=== PATIENT | female | born 1990 | race Caucasian/White ===

== ENCOUNTER 2016-08-22 13:14 | Emergency (ER) | payer MEDICAID ==
--- NOTE | 2016-08-22 13:24 | ER Document Report ---
ED Medical Screen (RME) - General Stated Complaint: FALL/KNEE Time seen by provider: 13:21 Mode of Arrival: Wheelchair Information source: Patient Notes: 26-year-old female presents to ED for pain in her left knee. Patient states she her knee pain started last Friday after falling and face planting with her left knee twisted. Last menstrual period 08/19/2016. She states she was running out the front door and the rug slipped from underneath of her and she fell face forward onto the ground. I have greeted and performed a rapid initial assessment of this patient. A comprehensive ED assessment and evaluation of the patient, analysis of test results and completion of medical decision making process will be conducted by an additional ED providers. TRAVEL OUTSIDE OF THE [place] IN LAST 30 DAYS: No - Related Data Allergies/Adverse Reactions: cefaclor [From Ceclor] Allergy (Intermediate, Verified 08/22/16 13:15) Hives Past Medical History - Immunizations Hx Diphtheria, Pertussis, Tetanus Vaccination: Yes
[2016-08-22] MEDS ORDERED: OXYCODONE-ACETAMINOPHEN 5-325 MG TABLET PO ONE (13:25)
[2016-08-22] MEDS ORDERED: IBUPROFEN 800 MG TABLET PO ONE (13:25)
--- NOTE | 2016-08-22 14:16 | ER Document Report ---
ED General - General Chief Complaint: Knee Pain Stated Complaint: FALL/KNEE Mode of Arrival: Wheelchair Notes: 26-year-old female here with complaints of left knee pain, lower back pain, and neck pain that started approximately 6 days ago after she fell down on her front porch due to slipping on the rug. She states that she was chasing her young child, slipped on a rug and fell down onto her left knee. She has been taking Tylenol and Excedrin Robaxin and tramadol since then for the pain. She has also been using a knee brace. She cannot put full weight on her knee without significant pain. She has not been using crutches. She has not had any incontinence fevers chills IV drug use numbness tingling. TRAVEL OUTSIDE OF THE [place] IN LAST 30 DAYS: No - Related Data Allergies/Adverse Reactions: cefaclor [From Ceclor] Allergy (Intermediate, Verified 08/22/16 13:15) Hives Past Medical History - General Information source: Patient - Social History Smoking Status: Never Smoker Chew tobacco use (# tins/day): No Family History: Other Patient has suicidal ideation: No Patient has homicidal ideation: No Renal/ Medical History: Denies: Hx Peritoneal Dialysis - Immunizations Hx Diphtheria, Pertussis, Tetanus Vaccination: Yes Review of Systems - Review of Systems Notes: See history of present illness for pertinent positive review of systems; otherwise all review of systems have been reviewed and are negative Physical Exam - Vital signs Vitals: Temp Pulse Resp BP Pulse Ox 97.6 F 92 16 134/72 H 99 08/22/16 13:19 08/22/16 13:19 08/22/16 13:19 08/22/16 13:19 08/22/16 13:19 - Notes Notes: PHYSICAL EXAMINATION: GENERAL: Well-appearing and in no acute distress. HEAD: Atraumatic, normocephalic. EYES: Pupils equal round and reactive to light, extraocular movements intact, sclera anicteric, conjunctiva are normal. ENT: nares patent, oropharynx clear without exudates. Moist mucous membranes. NECK: Normal range of motion, supple without lymphadenopathy LUNGS: CTAB and equal. No wheezes rales or rhonchi. HEART: Regular rate and rhythm without murmurs ABDOMEN: Soft, no tenderness. No guarding, no rebound EXTREMITIES: Limited range of motion secondary to pain, no pitting edema. No cyanosis. There is tenderness to palpation of the left medial patella with a small abrasion present, there is normal patellar range of motion, neurovascular intact bilateral lower extremities BACK: There some mild paralumbar muscle tenderness to palpation at the level of L1; there some mild midline cervical spine tenderness and moderate right paracervical muscle tenderness with normal range of motion NEUROLOGICAL: Cranial nerves grossly intact. Normal sensory/motor exams. PSYCH: Normal mood, normal affect. SKIN: Warm, Dry, normal turgor, no rashes or lesions noted Course - Re-evaluation Re-evalutation: 08/22/16 14:15 MEDICAL DECISION MAKING: Concern for fracture versus dislocation versus sprain Will obtain radiographs and give dose of pain medication Patient understands and agrees to the plan of care 08/22/16 14:43 X-rays reviewed with no acute fractures or dislocation I discussed with her possibility of ligamentous injury and follow-up PCP I will discharge her with a prescription for meloxicam and Norflex She already has her own knee brace here w her but we'll provide crutches She understands and agrees to the plan of care - Vital Signs Vital signs: Temp Pulse Resp BP Pulse Ox 97.6 F 92 16 134/72 H 99 08/22/16 13:19 08/22/16 13:19 08/22/16 13:19 08/22/16 13:19 08/22/16 13:19 Discharge - Discharge Clinical Impression: Fall, accidental Qualifiers: Encounter type: initial encounter Qualified Code(s): W19.XXXA - Unspecified fall, initial encounter Condition: Good Disposition: HOME, SELF-CARE Additional Instructions: You were seen in the emergency department at [facility]. Use the prescribed medications as needed for your symptoms. Please followup with your primary physician or orthopedic surgery in the next few days for further management/evaluation. Please return to the emergency department for worsening of symptoms or any symptom that you deem to be concerning or life-threatening. Thank you for allowing us to be part of your care. Prescriptions: Meloxicam 15 mg PO DAILYP PRN #10 tablet PRN Reason: Orphenadrine Citrate 100 mg PO BIDP PRN #20 tablet.sa PRN Reason: Referrals: ZEHRA BENTLEY DO [Primary Care Provider] - Follow up as needed FAYE TAMAYO MD [ACTIVE STAFF] - Follow up as needed
[2016-08-22 14:56] VITALS: BP 132/70
== END 2016-08-22 14:56 | disposition home or self-care (01) ==
LOC: ER 13:14
DX: M25.562 Pain in left knee (principal); M54.5 Low back pain; M54.2 Cervicalgia; W01.0XXA Fall on same level from slipping, tripping and stumbling without subsequent striking against object, initial encounter; Y92.009 Unspecified place in unspecified non-institutional (private) residence as the place of occurrence of the external cause
CPT/HCPCS: 99283; 72050; 73562; 72110; J3490

== ENCOUNTER 2017-11-04 23:31 | Emergency (ER) | payer MEDICAID ==
[2017-11-05] MEDS ORDERED: MORPHINE SULFATE IR 15 MG TABLET PO ONE (02:01)
[2017-11-05] MEDS ORDERED: DIPH/PERTUSS(ACELL)/TETANUS VAC/PF 0.5 ML SYR (>=10YO) IM ONE (02:02)
[2017-11-05] MEDS ORDERED: AMOXICILLIN TR/POT CLAVULANATE 500-125 MG TAB PO ONE (02:02)
[2017-11-05] MEDS ORDERED: IBUPROFEN 600 MG TABLET PO ONE (02:02)
[2017-11-05] MEDS ORDERED: ACETAMINOPHEN 325 MG TABLET PO ONE (02:02)
[2017-11-05] MEDS ORDERED: HYDROCODONE/ACETAMINOPHEN 5-325 MG (6 TAB/ER DISP) PO PRN (02:04)
[2017-11-05] MEDS ORDERED: ONDANSETRON ODT 4 MG TAB (6 TAB/ER DISP) PO PRN (02:04)
--- NOTE | 2017-11-05 02:07 | ER Document Report ---
ED General - General Chief Complaint: Dog Bite Stated Complaint: DOG BITE Time Seen by Provider: 11/05/17 01:30 Notes: Patient is a 27-year-old female without past medical history who presents after being bit on the right forearm by her dog just prior to arrival. She states that the Street dog entered their yard and got into an altercation with her dog. She reports that she was trying to break up the fight and the dog bit her arm. She states that since that time she has had a severe, constant, throbbing pain to the right forearm. Nothing improves the pain any attempt at moving the arm worsens the pain. No history of similar injuries in the past. The dog is up-to-date on immunizations. Patient is uncertain of her last tetanus immunization. She denies any additional injuries any other area of her body other than the right forearm. TRAVEL OUTSIDE OF THE [place] IN LAST 30 DAYS: No - Related Data Allergies/Adverse Reactions: cefaclor [From Ceclor] Allergy (Intermediate, Verified 08/22/16 13:15) Hives Past Medical History - General Information source: Patient - Social History Smoking Status: Current Every Day Smoker Chew tobacco use (# tins/day): No Frequency of alcohol use: None Drug Abuse: None Lives with: Spouse/Significant other Family History: Other Patient has suicidal ideation: No Patient has homicidal ideation: No Renal/ Medical History: Denies: Hx Peritoneal Dialysis Psychiatric Medical History: Reports: Hx Attention Deficit Hyperactivity Disorder, Hx Depression - Immunizations Hx Diphtheria, Pertussis, Tetanus Vaccination: Yes Review of Systems - Review of Systems Notes: Constitutional: Negative for fever. Eyes: Negative for visual changes. ENT: Negative for facial injury Cardiovascular: Negative for chest injury. Respiratory: Negative for shortness of breath. Gastrointestinal: Negative for abdominal injury. Genitourinary: Negative for genital injury Musculoskeletal: Positive for right forearm injury Skin: Positive for laceration/abrasions. Neurological: Negative for head injury. Physical Exam - Vital signs Vitals: Temp Pulse Resp BP Pulse Ox 98.3 F 113 H 20 141/85 H 99 11/04/17 23:59 11/04/17 23:59 11/04/17 23:59 11/04/17 23:59 11/04/17 23:59 Interpretation: Tachycardic Notes: PHYSICAL EXAMINATION: GENERAL: Appears to be in significant pain HEAD: Atraumatic, normocephalic. EYES: Pupils equal round and reactive to light, extraocular movements intact, sclera anicteric, conjunctiva are normal. ENT: nares patent, oropharynx clear without exudates. Moderately dry mucous membranes. NECK: Normal range of motion, supple without lymphadenopathy LUNGS: Breath sounds clear to auscultation bilaterally and equal. No wheezes rales or rhonchi. HEART: Regular rate and rhythm without murmurs ABDOMEN: Soft, nontender, normoactive bowel sounds. No guarding, no rebound. No masses appreciated. EXTREMITIES: Extensive swelling of the right forearm with greater than 10 puncture lacerations to the ventral surface of the right forearm. NEUROLOGICAL: RMU motor and sensory distribution is intact bilateral PSYCH: Normal mood, normal affect. SKIN: Warm, Dry, normal turgor, lacerations of the above the right forearm Course - Re-evaluation Re-evalutation: 11/05/17 02:05 Patient presents with multiple puncture wounds to the right upper extremity from a dog bite. There are multiple areas of associated swelling. No large open wounds. No exposure of subcutaneous fat. No bone deformity. The patient is able to complete RMU and motor and sensory distribution testing without difficulty. Dog's vaccination status is up-to-date. Patient will be started on Augmentin prophylaxis, tetanus has been updated. Wounds have been cleaned and dressed. Pain control has been provided. At this time will discharge with return precautions and follow-up recommendations. Verbal discharge instructions given a the bedside and opportunity for questions given. Medication warnings reviewed. Patient is in agreement with this plan and has verbalized understanding of return precautions and the need for primary care follow-up in the next 24-72 hours. - Vital Signs Vital signs: Temp Pulse Resp BP Pulse Ox 98.3 F 92 20 137/75 H 99 11/04/17 23:59 11/05/17 03:07 11/05/17 03:07 11/05/17 03:07 11/05/17 03:07 - Diagnostic Test Radiology reviewed: Image reviewed, Reports reviewed Radiology results interpreted by me: 11/05/17 03:27 Right forearm x-ray: No acute fracture Discharge - Discharge Clinical Impression: Dog bite of right arm Qualifiers: Encounter type: initial encounter Qualified Code(s): S41.151A - Open bite of right upper arm, initial encounter Condition: Good Disposition: HOME, SELF-CARE Additional Instructions: Please monitor very closely for any signs of infection from your dog bite including spreading redness from the area, pus from the wound, or worsening pain. Clean the area twice daily with soap and water and then apply topical antibiotic ointment. Please take all the antibiotics that you were prescribed until they are gone. Follow-up with your primary care physician as needed. For your pain: Take ibuprofen 600 mg and acetaminophen 1000 mg every 6 hours together as needed for pain. If this does not control your pain you may take 15 mg of oral morphine every 4 hours as needed. Please be very careful about using the oral morphine and only use this for severe pain. Prescriptions: Morphine Sulfate [Morphine Ir 15 mg Tablet] 15 mg PO Q4HP PRN #6 tablet PRN Reason: Amox Tr/Potassium Clavulanate [Augmentin 875-125 Tablet] 1 tab PO BID 5 Days tablet Referrals: ZEHRA BENTLEY DO [Primary Care Provider] - Follow up as needed
--- NOTE | 2017-11-05 02:56 | RADIOLOGY REPORT (SQ) ---
EXAM DESCRIPTION: FOREARM RIGHT CLINICAL HISTORY: swelling, deep puncture wounds COMPARISON: None. FINDINGS: 2 views of the right forearm. No acute fracture or dislocation. Soft tissue injury involving the ventral aspect of the forearm. No radiopaque foreign bodies. Normal osseous mineralization. IMPRESSION: No acute fracture or dislocation. No radiopaque foreign body. Soft tissue injury involving the ventral forearm.
[2017-11-05 03:08] VITALS: BP 137/75
== END 2017-11-05 03:07 | disposition home or self-care (01) ==
LOC: ER 23:31
DX: S41.151A Open bite of right upper arm, initial encounter (principal); W54.0XXA Bitten by dog, initial encounter; F17.200 Nicotine dependence, unspecified, uncomplicated
CPT/HCPCS: 99283; 90471; 73090; 90715; J3490 ×3